=== PATIENT | female | born 2000 | race Caucasian/White ===

== ENCOUNTER 2022-10-08 13:09 | Emergency (ER) | payer OTHER ==
[2022-10-08] MEDS ORDERED: diphenhydrAMINE 25 MG CAP ONE (14:56)
[2022-10-08] MEDS ORDERED: Metoclopramide HCl 10 MG TAB ONE (14:57)
== END 2022-10-08 15:29 | disposition home or self-care (01) ==
LOC: CSHERS 13:09
DX: M62.830 Muscle spasm of back (principal)
CPT/HCPCS: 99283